=== PATIENT | female | born 1985 | race Caucasian/White ===

== ENCOUNTER 2016-06-14 18:13 | Inpatient (IN) | payer MEDICAID ==
[~2016-06-14] VITALS: Ht 152.4 cm; Wt 50.1 kg
[2016-06-14] MEDS ORDERED: LAMO25 PO (18:27)
[2016-06-14] MEDS ORDERED: RISP1 PO (18:27)
[2016-06-14 18:37] LABS: BASOPHILS % (AUTO) 0.1 % (0.0-2.0); EOSINOPHILS % (AUTO) 1.1 % (1.0-6.0); HEMATOCRIT 42.5 % (36-46); HEMOGLOBIN 13.9 g/dL (12.0-16.0); LYMPHOCYTES # (AUTO) 1.6 K/uL (1.0-4.8); LYMPHOCYTES % (AUTO) 17.2 % (22.0-44.0); MEAN CORPUSCULAR HEMOGLOBIN 29.7 pg (26.0-34.0); MEAN CORPUSCULAR HGB CONC 32.8 G/dL (31.0-37.0); MEAN CORPUSCULAR VOLUME 91 fL (80-100); MONOCYTES # (AUTO) 1.1 K/uL (0.1-1.0); MONOCYTES % (AUTO) 11.4 % (2.0-9.0); NEUTROPHILS # (AUTO) 6.6 K/uL (1.8-7.7); NEUTROPHILS % (AUTO) 70.2 % (40.0-70.0); PLATELET COUNT (AUTO) 261 K/uL (150-450); RED BLOOD CELL COUNT(AUTO) 4.69 MIL/uL (4.00-5.20); RED CELL DISTRIBUTION WIDTH 12.6 % (11.5-14.5); WHITE BLOOD COUNT (AUTO) 9.4 K/uL (4.5-11.0)
[2016-06-14 18:54] LABS: ANION GAP 7 mmol/L (8-16); CALCIUM, TOTAL 9.3 mg/dL (8.8-10.5); CARBON DIOXIDE 30 mmol/L (22-29); CHLORIDE 104 mmol/L (98-107); CREATININE 0.81 mg/dL (0.60-1.30); GLOMERULAR FILTR. RATE CALC > 60 mL/min (>60); SODIUM SERUM 141 mmol/L (136-145); UREA NITROGEN, BLOOD 16 mg/dL (7-18)
[2016-06-14 19:00] LABS: ALANINE AMINOTRANSFERASE 20 U/L (12-78); ALBUMIN 4.2 g/dL (3.4-5.0); ASPARTATE AMINOTRANSFERASE 15 U/L (15-37); BILIRUBIN,TOTAL 0.4 mg/dL (0.1-1.0); TOTAL PROTEIN, SERUM 7.6 g/dL (6.4-8.2)
[2016-06-14] MEDS ORDERED: HALOPERIDOL 5 MG TABLET PO PRN (21:45)
[2016-06-14] MEDS ORDERED: LORazepam 2 MG TABLET PO PRN (21:45)
[2016-06-14 21:48] LABS: APPEARANCE,URINE TURBID (CLEAR); GLUCOSE, URINE (UA) NEGATIVE (NEGATIVE); KETONES,URINE NEGATIVE (NEGATIVE); LEUKOCYTE ESTERASE ,URINE NEGATIVE (NEGATIVE); OCCULT BLOOD,URINE NEGATIVE (NEGATIVE); PH,URINE 7.5 (5.0-8.0); PROTEIN,URINE NEGATIVE (NEGATIVE)
[2016-06-14 21:56] LABS: ADD UA MICROSCOPIC NO
[2016-06-15 00:23] VITALS: BP 114/57
[2016-06-15] MEDS: ZOLPIDEM TARTRATE 10 MG TABLET PO PRN ×2 (02:03→21:36)
[2016-06-15 07:08] LABS: THYROID STIMULATING HORMONE 5.49 uIU/mL (0.36-3.74)
[2016-06-15 10:15] VITALS: BP 105/60
[2016-06-15] MEDS ORDERED: RisperiDONE 1 MG TABLET PO SCH (10:45)
[2016-06-15] MEDS: LamoTRIgine 100 MG TABLET PO SCH (11:44)
[2016-06-15 19:41] VITALS: BP 113/70
[2016-06-15] MEDS ORDERED: ACETAMINOPHEN 325 MG TABLET PO PRN (22:30)
[2016-06-15] MEDS ORDERED: IBUPROFEN 400 MG TABLET PO PRN (22:30)
[2016-06-16 06:29] LABS: HEMOGLOBIN A1C 5.3 % (4.5-6.2)
[2016-06-16] MEDS ORDERED: LEVOTHYROXINE SODIUM 25 MCG TABLET PO SCH (07:00)
[2016-06-16] MEDS: LamoTRIgine 100 MG TABLET PO SCH (09:02)
[2016-06-16 09:14] VITALS: BP 114/69
[2016-06-16] MEDS ORDERED: LEVO25TA9 PO (14:49)
== END 2016-06-16 17:00 | disposition home or self-care (01) | DRG 753 ==
LOC: EMS 18:13 → 3EI 21:58
PROVIDERS: ADMIT Psychiatry & Neurology Child & Adolescent Psychiatry; ATTEND Psychiatry & Neurology Child & Adolescent Psychiatry
DX: F31.4 Bipolar disorder, current episode depressed, severe, without psychotic features (principal); R45.851 Suicidal ideations; F41.9 Anxiety disorder, unspecified; E03.9 Hypothyroidism, unspecified; F10.10 Alcohol abuse, uncomplicated; Z71.41 Alcohol abuse counseling and surveillance of alcoholic; Z79.899 Other long term (current) drug therapy; Z91.5 Personal history of self-harm; Z91.410 Personal history of adult physical and sexual abuse
CPT/HCPCS: 83036; 84439; 84443; 99285; G0480